=== PATIENT | female | born 1950 | race Caucasian/White ===

== ENCOUNTER 2019-09-19 07:02 | Outpatient (CLI) | payer MEDICARE, MEDICAID, SELFPAY ==
--- NOTE | 2019-09-19 07:15 | US_ITS ---
WS: [id number] RIGHT UPPER QUADRANT ULTRASOUND HISTORY: CIRRHOSIS COMPARISON: 03/07/2019 Liver: 12.1 cm in length. Liver is normal size. Mild nodularity along the surface of the liver. No intrahepatic mass or bile duct dilatation. Mild enlargement of the portal splenic confluence. Gallbladder: Normally distended gallbladder. Polyp seen on the prior examination measures 9 mm. Similar size as compared to prior examinations dating back to 2014. Gallbladder wall is mildly thickened at 3.7 mm. CBD: 6.6 mm Pancreas: Normal size and echogenicity. Right kidney: 10.0 cm in length. Normal echogenicity with no mass or hydronephrosis. Aorta and IVC: Unremarkable. No ascites. NOTE: Report was unsigned for reason: Ordering provider was edited. Original Signature date and time was: 09/19/19 0915 [facility] US/US abdomen limited [id number] IMPRESSION: 1. Findings consistent with cirrhosis and portosystemic hypertension, similar to the prior studies. 2. Long-term stability of a 9 mm gallbladder polyp. 3. Mild gallbladder wall thickening is probably on the basis of hepatocellular disease.
== END 2019-09-19 07:03 | disposition home or self-care (01) ==
LOC: RAD 07:08
PROVIDERS: PCP Family Medicine; Visit Provider Internal Medicine Gastroenterology
DX: K82.4 Cholesterolosis of gallbladder (principal); K74.60 Unspecified cirrhosis of liver
CPT/HCPCS: 76705

== ENCOUNTER 2020-05-11 07:40 | Outpatient (CLI) | payer MEDICARE, MEDICAID, SELFPAY ==
--- NOTE | 2020-05-11 08:49 | US_ITS ---
WS: [id number] RIGHT UPPER QUADRANT ULTRASOUND HISTORY: CIRRHOSIS/ HCC SCREENING COMPARISON: 09/19/2019 Liver: 13.5 cm in length. Small liver. Surface of the liver is irregular and nodular. No mass identif ied. No bile duct dilatation. Portal vein is dilated. The entire portal vein and splenic vein are dil ated. Gallbladder: Well distended gallbladder. Diffuse gallbladder wall thickening measuring up to 5 mm. Ag ain noted is the 8 x 6 mm polyp which is unchanged in size. CBD: 0.5 cm Pancreas: Small atrophied pancreas. Right kidney: 9.7 cm in length. Normal size and echogenicity. No hydronephrosis or mass. Aorta and IVC: Unremarkable abdominal aorta and IVC. No ascites. US/US abdomen limited [id number] IMPRESSION: 1. Cirrhosis with no evidence for hepatic neoplasm. 2. Dilated stable portal and splenic veins. Consistent with a history of cirrh osis and portal venous hypertension. 3. Stable gallbladder polyp.
== END 2020-05-11 07:41 | disposition home or self-care (01) ==
LOC: RAD 07:43
PROVIDERS: PCP Family Medicine; Visit Provider Internal Medicine Gastroenterology
DX: K74.60 Unspecified cirrhosis of liver (principal); K82.4 Cholesterolosis of gallbladder
CPT/HCPCS: 76705

== ENCOUNTER 2020-11-19 13:58 | Outpatient (CLI) | payer MEDICARE, MEDICAID, SELFPAY ==
--- NOTE | 2020-11-19 14:22 | XR_ITS ---
WS: [id number] PROCEDURE: XR chest 2V* [id number] CLINICAL INFORMATION: COUGH, UPPER BACK PAIN COMPARISON: FINDINGS: Heart: Cardiomegaly. Aortic calcification. Lungs: Advanced chronic emphysematous changes. No acute pulmonary infiltrates. Bones: Mild thoracic kyphosis. Mild thoracic curve. Osteopenia. XR/XR chest 2V* [id number] IMPRESSION: 1. Cardiomegaly. 2. Chronic emphysematous changes. No acute pulmonary infiltrates. 3. No acute chest findings.
== END 2020-11-19 13:59 | disposition home or self-care (01) ==
PROVIDERS: PCP Internal Medicine; Visit Provider Nurse Practitioner Family
DX: M54.9 Dorsalgia, unspecified (principal); R05 Cough; I51.7 Cardiomegaly
CPT/HCPCS: 71046

== ENCOUNTER 2021-02-04 12:29 | Outpatient (CLI) | payer MEDICARE, MEDICAID, SELFPAY ==
--- NOTE | 2021-02-04 12:38 | USCV_ITS ---
Livia Dudley Age: 70 Gender: F : 1950 Exam Date: 02/04/2021 13:23 Ordering Phys: Daya Anderson MD Technologist: Wanda Parry [place] [facility] [place]: CHF BP: 132 / 89 HR: 79 Rhythm: Sinus Technical Quality: Adequate MEASUREMENTS (Male / Female) Normal Values 2D ECHO LV Diastolic Diameter PLAX 4.9 cm 4.2 - 5.9 / 3.9 - 5.3 cm LV Systolic Diameter PLAX 2.8 cm IVS Diastolic Thickness 1.1 cm 0.6 - 1.0 / 0.6 - 0.9 cm IVS Systolic Thickness 1.4 cm LVPW Diastolic Thickness 1.1 cm 0.6 - 1.0 / 0.6 - 0.9 cm LVPW Systolic Thickness 1.6 cm RV Chamber Size 2.8 cm LVOT Diameter 2.0 cm LV Ejection Fraction 2D Teich 73.8 % LV Ejection Fraction MOD 2C 65.0 % LV Ejection Fraction 2C AL 64.6 % LA Diameter 2.7 cm LA Width 3.6 cm LA Height 4.6 cm RA Width 3.6 cm RA Height 4.4 cm Aorta at Sinotubular Diameter 2.3 cm M-MODE LV Diastolic Diameter MM 5.1 cm 4.2 - 5.9 / 3.9 - 5.3 cm LV Systolic Diameter MM 3.2 cm LV Ejection Fraction MM Teich 67.3 % IVS Diastolic Thickness MM 1.2 cm 0.6 - 1.0 / 0.6 - 0.9 cm IVS Systolic Thickness MM 1.5 cm LVPW Diastolic Thickness MM 1.1 cm 0.6 - 1.0 / 0.6 - 0.9 cm LVPW Systolic Thickness MM 1.5 cm Aortic Annulus Diameter 3.4 cm LA Ao Ratio MM 0.9 MV E Point Septal Separation 0.7 cm DOPPLER AV Peak Velocity 120.0 cm/s LVOT Peak Velocity 109.0 cm/s AV Area Cont Eq vti 2.7 cm squared AV Area Cont Eq pk 2.8 cm squared MV Area PHT 4.3 cm squared Mitral E to A Ratio 1.3 MV E' Velocity 43.5 cm/s Mitral E to MV E' Ratio 6.9 Mitral E to LV E' Lateral Ratio 6.2 Mitral E to LV E' Septal Ratio 7.8 TR Peak Velocity 365.3 cm/s TR Peak Gradient 53.4 mmHg TV Peak E Velocity 43.0 cm/s Right Atrial Pressure 3.0 mmHg Pulmonary Artery Systolic Pressu 56.4 mmHg PV Peak Velocity 97.0 cm/s RV Acceleration Time 0.1 s RV Ejection Time 0.3 s RV AcT/ET 0.4 FINDINGS Left Ventricle Normal left ventricular size. LV systolic function is normal with EF of 55-60%. No regional wall motion abnormalities. Normal diastolic filling pattern. Right Ventricle The right ventricle is normal in size and function. Right Atrium The right atrium is normal in size. Left Atrium The left atrium is normal in size. Mitral Valve Structurally normal mitral valve without significant stenosis or prolapse. There is trace mitral regurgitation. Aortic Valve Structurally normal aortic valve without significant sclerosis or stenosis. There is mild aortic regurgitation. Tricuspid Valve Structurally normal tricuspid valve without significant stenosis. Mild tricuspid regurgitation. Insufficient TR jet to calculate RVSP Pulmonic Valve Structurally normal pulmonic valve without significant stenosis. There is trace pulmonic regurgitation. Pericardium Normal pericardium without effusion. Aorta Normal ascending aorta dimension. CONCLUSIONS LV systolic function is normal with EF of 55-60% Diastolic function is normal Trace mitral regurgitation, trace pulmonic regurgitation Mild aortic regurgitation, mild tricupsid regurgitation Compared to prior echocardiogram from 08/05/2016, no signficant changes are noted Darin Bowers MD (Electronically Signed) Final Date: 04 February 2021 14:41 S
[2021-02-04 13:19] LABS: Blood Urea Nitrogen 11 mg/dL (8-23)
[2021-02-04] MEDS: iohexol 300 mg/mL 100 mL Btl IV (13:47)
== END 2021-02-04 12:30 | disposition home or self-care (01) ==
LOC: RAD 12:34
PROVIDERS: Visit Provider Internal Medicine
DX: J44.9 Chronic obstructive pulmonary disease, unspecified (principal); I50.9 Heart failure, unspecified; I08.3 Combined rheumatic disorders of mitral, aortic and tricuspid valves
CPT/HCPCS: 36415; 82565; 84520; 93306

== ENCOUNTER 2021-02-21 08:11 | Outpatient (CLI) | payer MEDICARE, MEDICAID, SELFPAY ==
--- NOTE | 2021-02-21 08:38 | CT_ITS ---
WS: [id number] CT CHEST TECHNIQUE: Contrast enhanced CT of the chest with coronal and sagittal reformatted images. CLINICAL INFORMATION: COPD COMPARISON: CTA chest 9 10,019 DLP: 430.[address] scans at [facility] use at least one of these dose optimization techniques: automat ed exposure control; mA and/or kV adjustment per patient size (includes targeted exams where dose is matched to clinical indication); or iterative reconstruction. FINDINGS: Mild chronic emphysematous changes. No acute pulmonary infiltrates. No consolidation or pleural fluid . Cardiomegaly. No focal pneumonia or pleural fluid. Subsegmental atelectasis left lower lobe. No oth er suspicious pulmonary parenchymal abnormalities. Enlarged heterogeneous thyroid with nodularity. Normal caliber thoracic aorta. Proximal main pulmonar y arteries appear normal. No mediastinal or hilar lymphadenopathy. No axillary lymphadenopathy. Small esophageal hiatal hernia. Cirrhotic liver. Splenomegaly partially visualized. Normal caliber up per abdominal aorta partially visualized. Diffuse fatty infiltration the liver. Enhancing lesion left hepatic lobe measuring 2.3 x 1.7 CM with hypoechoic halo suspicious for HCC. Edema in the ivon hepa tis partially visualized. Suspected partially visualized filling defect involving the main portal vein at the ivon hepatis ruiz picious for thrombus with narrowing of the right portal vein. This is only partially visualized. Deejay mmend further evaluation with contrast-enhanced CT abdomen pelvis with triphasic liver protocol. Susp ected thrombus measures 4.[address]/CT chest w con* [id number] IMPRESSION: 1. Mild chronic emphysematous changes. No acute pulmonary infiltrates. 2. Subsegmental atelectasis left lower lobe. No suspicious pulmonary parenchym al abnormalities. 3. Cardiomegaly. 4. Cirrhotic liver with new left hepatic lobe nodular lesion measuring 1.7x2.3 cm with hypoenhancing halo suspicious for HCC. Recommend further evaluation wi th CT abdomen pelvis with triphasic liver protocol. 5. Partially visualized splenomegaly. Portal venous hypertension. 6. Suspected partially visualized filling defect involving the main portal vei n at the ivon hepatis suspicious for thrombus with narrowing of the right port al vein. Recommend further evaluation with contrast-enhanced CT abdomen pelvis with triphasic liver protocol. Notified Daya Anderson MD at 02/21/2021 10:14 AM.
[2021-02-21] MEDS: iohexol 300 mg/mL 100 mL Btl IV (09:09)
== END 2021-02-21 08:12 | disposition home or self-care (01) ==
LOC: RAD 08:14
PROVIDERS: PCP Internal Medicine; Visit Provider Internal Medicine
DX: J44.9 Chronic obstructive pulmonary disease, unspecified (principal); J98.11 Atelectasis; I51.7 Cardiomegaly; K74.60 Unspecified cirrhosis of liver; K76.6 Portal hypertension
CPT/HCPCS: 71260

== ENCOUNTER 2021-06-14 07:48 | Outpatient (CLI) | payer MEDICARE, MEDICAID, SELFPAY ==
--- NOTE | 2021-06-14 17:35 | ONC CON_ITS ---
Dr. García New Patient Note Patient: Livia Dudley Unit #: [id number]: 1950 Dicatated By: Rafal García M.D.Date of Visit: Jun 14, 2021 Onc MED New Patient/Consult Referring Physician: Dr. ZHOU ANDERSON M.D. Chief Complaint: Neutropenia. History of Present Illness: This is a 71-year-old woman with pancytopenia and worsening neutropenia. She has a known history of hepatitis C, acquired through a blood transfusion. She had successful treatment for the hepatitis C about 5 years ago. However, in the meantime she had developed liver cirrhosis with associated hypersplenism. According to records which her daughter has compiled, she had pancytopenia dating back to at least 2006, though she did have normal blood counts on a CBC done here in May 2005. In any case, in February 2021 she was evaluated with a CT pulmonary angiogram for complaints of chest pain and shortness of breath. It showed mild emphysematous changes with no evidence of pulmonary embolism or other acute pathology in the chest. There was evidence for cirrhosis of the liver and splenomegaly. Also noted was an enhancing lesion in the left hepatic lobe measuring 2.3 x 1.7 cm with hypoechoic halo suspicious for hepatocellular carcinoma. A partially visualized filling defect involving the main portal vein at the ivon hepatis was suspicious for thrombus. She had further evaluation at [facility] and she ultimately was confirmed to have hepatocellular carcinoma, for which she underwent an embolization procedure in March 2021. I am asked to see her because of a low neutrophil count, which apparently has been declining over the past several months. The records which were provided include a CBC from 12/19/2020 which showed a hemoglobin of 11.1 g and hematocrit 33.9%. The red cell indices were normal. The white blood cell count was 2300 and the platelet count was 84,000. The differential included 58% neutrophils, 26% lymphocytes, 12% monocytes, and 4% eosinophils. A serum iron at that time was normal at 59 mcg/dL and her B12 level was normal at 677 pg/mL. Her most recent CBC from 06/07/2021 showed hemoglobin stable at 11.1 g with white blood cell count 1600 and platelet count 76,000. The differential showed 61% segs, 28% neutrophils, 8% monocytes, 2% eosinophils, and 1% basophils, with the absolute neutrophil count calculated to 1000. Her comprehensive metabolic profile at that time was unremarkable. Renal function was normal with BUN 14 and creatinine 0.60 mg/dL. The bilirubin and liver enzymes were normal and the albumin was normal at 4.4 g/dL. She has been feeling pretty good generally. She does have somewhat limited activity, but she is able to do some light work at home. ECOG score is 1. Her appetite is sometimes not good and her weight recently has been down a little. She does not have fever or night sweats. She recently got new dentures. She does not have sore throat or difficulty swallowing. She has a little bit of cough. She does not complain of shortness of breath or chest pain. She recently had some epigastric pain, thought to be due to acid reflux. She does not complain of nausea, she does have constipation. She has no complaints other than she sometimes has urgency with urination. She has no significant joint or bone pain. She sometimes has headache. She does not complain of dizziness, and she has no focal neurologic symptoms. She has been noted to bruise easily, but she has had no other bleeding manifestations. Past Medical History: Her medical history consists of atrial fibrillation, congestive heart failure, hepatitis C, hepatocellular carcinoma, hypersomnia, hypertension, hypothyroidism, and liver cirrhosis. Past Surgical History: Her surgical/procedural history includes D&C following a stillbirth and knee surgery for abscess. Medications: She had previously been taking metoprolol, but that was discontinued. She currently is not on any prescription medication. Allergies: No Known Allergies. Social History: Ms. Dudley is . She is a non-smoker. She does not drink alcohol. Family History: Father of heart disease at approximately age 80. Mother around age 70, most likely with some type of lung disease. She had a total of 9 siblings, 7 at home are still living. One brother of esophageal cancer and another recently with Covid 19 infection. Review Of Symptoms: Constitutional - She feels pretty good generally. She has somewhat limited activity, but she does some light housework. Her appetite is sometimes not as good, and her weight is down a little. She does not have fever or night sweats. ECOG score is 1, Eyes - No change in vision, ENMT - No hearing loss or tinnitus. No sinus congestion/drainage. She recently got new dentures. No sore throat or difficulty swallowing, Hematologic/Lymphatic - She has easy bruising, Respiratory - No shortness of breath. She has a little bit of cough. No pleuritic pain or hemoptysis, Cardiovascular - No angina pain. No palpitations, Gastrointestinal - No nausea or vomiting. She recently was having some pain in the epigastric area, thought to be most likely due to acid reflux. She has constipation. No blood in the stool or black stools, Genitourinary (F) - No dysuria or hematuria. No urinary frequency. She sometimes has urgency with urination. No incontinence, Musculoskeletal - No joint or bone pain, Integumentary - No skin rash or other skin changes, Neurologic - She sometimes has headache. No dizziness. No numbness or tingling. No other focal neurologic symptoms, Psychiatric - No anxiety or depression. No insomnia. Vital Signs: Performed on Jun 14, 2021 08:12: 0, 0, 30.00, 1.76 sq.m, 62 in, 97 %, 89 /min, 18 /min, 148/81 mm(hg) (HIGH), 97.2 F (LOW), and 164 lbs (HIGH). Physical Examination: Constitutional - She appears elderly but in good general health, Eyes - Sclerae nonicteric. Conjunctivae clear, ENMT - No lesions noted in the oral cavity, Neck - No mass or thyromegaly, Hematologic/Lymphatic - No cervical, clavicular, or axillary adenopathy, Respiratory - Lungs are clear with good air movement bilaterally, Cardiovascular - Heart rhythm is regular. There is no murmur, gallop, or rub noted, Abdomen - Soft and non-tender. Liver is not enlarged. The spleen is palpable on inspiration just below the costal margin. There is no abdominal mass or ascites noted and there is no inguinal adenopathy, Back/Spine - No spine or CVA tenderness noted, Extremities - Slight edema. Pedal pulses are palpable bilaterally, Integumentary - No rashes. No suspicious skin lesions noted, Neurologic - No focal neurologic deficits noted. Problem List: 1. Pancytopenia with worsening neutropenia. 2. 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 There is associated splenomegaly/hypersplenism which is the presumed cause for the pancytopenia. 3. Hepatocellular carcinoma for which she underwent an ablation procedure at [facility] in March 2021. 4. Hypertension, currently not requiring medication. 5. Atrial fibrillation, currently not requiring medication. 6. Congestive heart failure. 7. Hypothyroidism. 8. Hypersomnia. Problems Addressed with this Encounter and Plan: Patient with liver cirrhosis due to hepatitis C. She has associated splenomegaly with longstanding pancytopenia. Recently she has had a declining neutrophil count, but with her other blood counts remaining stable. The cause for this is uncertain. It is obviously not medication related, and the decline in her neutrophil count predated the ablation procedure to the liver. She has not had any acute illness to account for it, and it would also seem unlikely to be autoimmune. The main concern would be the possibility of a developing myelodysplastic syndrome. As her clinical status is otherwise appears stable and she does not appear to be symptomatic with it, I will initially just monitor this with close observation. I will contact Dr. Anderson to work out a follow-up laboratory schedule, but sometime within the next month I would like to repeat a CBC here so that I can review the blood smear. Otherwise, if her neutrophil count remains adequate at this level we can just continue to watch it. If there is further decline, she will need a bone marrow aspiration/biopsy. Signed By: Rafal García M.D. <<Signature on File>>
== END 2021-06-14 07:49 | disposition home or self-care (01) ==
LOC: ONCMED 07:51
PROVIDERS: PCP Internal Medicine; Visit Provider Internal Medicine Medical Oncology
DX: D61.818 Other pancytopenia (principal); K74.60 Unspecified cirrhosis of liver; B19.20 Unspecified viral hepatitis C without hepatic coma; I10 Essential (primary) hypertension; I48.91 Unspecified atrial fibrillation; I50.9 Heart failure, unspecified; E03.9 Hypothyroidism, unspecified; G47.10 Hypersomnia, unspecified; Z85.05 Personal history of malignant neoplasm of liver; Z79.899 Other long term (current) drug therapy
CPT/HCPCS: 99204

== ENCOUNTER 2021-07-02 12:22 | Outpatient (CLI) | payer MEDICARE, MEDICAID, SELFPAY ==
[2021-07-02 13:02] LABS: Hemoglobin 11.2 g/dL (11.5-15.3); Lymphocytes # 0.5 10^3/uL (0.8-4.8); Mean Corpuscular Hemoglobin 30.8 pg (28.0-34.0); Mean Corpuscular Volume 96.2 fl (81-99); Mean Platelet Volume 10.3 fL (7.4-10.4); Monocytes # 0.2 10^3/uL (0.2-0.9); Monocytes % 9.5 %; Neutrophils # 1.26 10^3/uL (1.8-7.7); Nucleated Red Blood Cells % 0 %; Platelet Count 75 10^3/cmm (130-400); Red Blood Count 3.64 10^6/uL (4.1-5.3); Red Cell Distribution Width 13.2 % (12.1-15.1)
[2021-07-02 13:11] LABS: LAB Peripheral Smear Sent for Review
== END 2021-07-02 12:23 | disposition home or self-care (01) ==
LOC: LAB 12:27
PROVIDERS: PCP Internal Medicine; Visit Provider Internal Medicine
DX: D70.9 Neutropenia, unspecified (principal); D61.818 Other pancytopenia
CPT/HCPCS: 36415; 85025

== ENCOUNTER 2023-03-20 11:12 | Outpatient (CLI) | payer MEDICARE, MEDICAID, SELFPAY ==
[2023-03-20 11:31] LABS: Basophils % 0.6 %; Eosinophils # 0.1 10^3/uL (0.0-0.8); Eosinophils % 5.1 %; Hematocrit 32.2 % (37.0-47.0); Hemoglobin 10.2 g/dL (11.5-15.3); Lymphocytes # 0.5 10^3/uL (0.8-4.8); Lymphocytes % 28.4 %; Mean Corpuscular HGB Conc 31.7 g/dL (30.0-36.0); Mean Corpuscular Hemoglobin 29.6 pg (28.0-34.0); Mean Corpuscular Volume 93.3 fl (81-99); Mean Platelet Volume 9.6 fL (7.4-10.4); Monocytes # 0.2 10^3/uL (0.2-0.9); Monocytes % 9.7 %; Neutrophils # 0.99 10^3/uL (1.8-7.7); Neutrophils % 56.2 %; Nucleated Red Blood Cells % 0 %; Platelet Count 64 10^3/cmm (130-400); Red Blood Count 3.45 10^6/uL (4.1-5.3); Red Cell Distribution Width 13.3 % (12.1-15.1); White Blood Count 1.8 10^3/uL (4.0-10.0)
[2023-03-20 11:55] LABS: Alanine Aminotransferase 18 U/L (0-33); Albumin Level 4.1 g/dL (3.5-5.2); Alkaline Phosphatase 73 U/L (35-105); Aspartate Amino Transferase 21 U/L (0-32); Blood Urea Nitrogen 10 mg/dL (8-23); Calcium 8.8 mg/dL (8.5-10.5); Carbon Dioxide 26 mmol/L (22-29); Chloride 105 mmol/L (98-107); Globulin 3.2 g/dL (1.3-4.6); Glucose 105 mg/dL (65-115); Osmolality Calculated 291 mOsm/kg (285-295); Sodium 141 mmol/L (136-145); Total Bilirubin 0.6 mg/dL (0.15-1.2); Total Protein 7.3 g/dL (6.6-8.7)
[2023-03-20 12:17] LABS: Anion Gap 14.5 (5-19); Potassium 4.5 mmol/L (3.5-5.1)
== END 2023-03-20 11:13 | disposition home or self-care (01) ==
PROVIDERS: PCP Internal Medicine; Visit Provider Nurse Practitioner Family
DX: R53.1 Weakness (principal)
CPT/HCPCS: 36415; 80053; 85025

== ENCOUNTER 2023-04-18 12:46 | Emergency (ER) | payer MEDICARE, MEDICAID, SELFPAY ==
[2023-04-18 12:54] VITALS: BP 156/95; PULSE 77; RESP 16; TEMP 36.5; O2SAT 98; BMI 28.3
[2023-04-18 13:07] LABS: Basophils % 0.6 %; Eosinophils # 0.1 10^3/uL (0.0-0.8); Eosinophils % 5.2 %; Lymphocytes # 0.5 10^3/uL (0.8-4.8); Lymphocytes % 27.9 %; Mean Corpuscular HGB Conc 31.8 g/dL (30-55); Mean Corpuscular Volume 94.3 fl (85-98); Mean Platelet Volume 9.8 fL (7.4-10.4); Monocytes # 0.2 10^3/uL (0.2-0.9); Monocytes % 9.3 %; Neutrophils % 56.4 %; Nucleated Red Blood Cells % 0 %; Platelet Count 58 10^3/cmm (157-399); Red Cell Distribution Width 13.4 % (12.1-15.1); White Blood Count 1.72 10^3/uL (3.29-11.43)
[2023-04-18 13:12] LABS: Neutrophils # 0.97 10^3/uL (1.8-7.7)
[2023-04-18 13:23] LABS: Alanine Aminotransferase 15 U/L (0-33); Albumin Level 4.4 g/dL (3.5-5.2); Alkaline Phosphatase 76 U/L (35-105); Anion Gap 14.1 (5-19); Aspartate Amino Transferase 21 U/L (0-32); Blood Urea Nitrogen 14 mg/dL (8-23); Calcium 8.7 mg/dL (8.5-10.5); Carbon Dioxide 25 mmol/L (22-29); Chloride 100 mmol/L (98-107); Globulin 3.2 g/dL (1.3-4.6); Glucose 106 mg/dL (65-115); Osmolality Calculated 281 mOsm/kg (285-295); Potassium 4.1 mmol/L (3.5-5.1); Sodium 135 mmol/L (136-145); Total Bilirubin 0.7 mg/dL (0.15-1.2); Total Protein 7.6 g/dL (6.6-8.7)
[2023-04-18 13:29] VITALS: BP 143/84; BP 153/87; BP 162/89; PULSE 74; PULSE 85
--- NOTE | 2023-04-18 13:38 | ECG_ITS ---
[facility] Test Date: 2023-04-18 Pat Name: Livia Dudley Department: Room: Gender: Female Clothes Designer: : 1950 Requested By: Maurice Rolle Order Number: [id number] MD: Darin Bowers M.D. Measurements Intervals [place] Rate: 72 P: 58 VA: 183 QRS: 7 QRSD: 148 T: 3 QT: 404 QTc: 442 Interpretive Statements SINUS RHYTHM INTRAVENTRICULAR CONDUCTION DELAY [130+ ms QRS DURATION] Compared to ECG 05/04/2019 00:08:13 Intraventricular conduction delay now present Right bundle-branch block no longer present T-wave abnormality no longer present Possible ischemia no longer present Electronically Signed On 04-18-2023 14:40:15 CDT by Darin Bowers M.D. [id number]
--- NOTE | 2023-04-18 13:49 | CTR_ITS ---
PROCEDURE INFORMATION: Exam: CT Head Without Contrast Exam date and time: 04/18/2023 2:15 PM Age: 73 years old Clinical indication: Dizziness; Additional info: Dizziness weakness TECHNIQUE: Imaging protocol: Computed tomography of the head without contrast. Radiation optimization: All CT scans at this facility use at least one of these dose optimization techniques: automated exposure control; mA and/or kV adjustment per patient size (includes targeted exams where dose is matched to clinical indication); or iterative reconstruction. REPORTING DATA: Count of CT and Cardiac NM exams in prior 12 months: This patient has received 0 known CTs and 0 known cardiac nuclear medicine studies in the 12 months prior to the current study. COMPARISON: No relevant prior studies available. RADIATION DOSE METRICS: Total DLP (mGy-cm): 975.26 FINDINGS: Brain: Diffuse cerebral atrophy, consistent with patient's age. No hemorrhage. Preserved marshall-white matter differentiation. Unremarkable white matter. No mass effect. Mild intracranial vascular calcifications. Cerebral ventricles: Ventricles are in proportion to the degree of atrophy. Paranasal sinuses: Visualized sinuses are unremarkable. No fluid levels. Mastoid air cells: Visualized mastoid air cells are well aerated. Auditory system: Likely ceruminous debris in the external auditory canals. Bones/joints: Unremarkable. No acute fracture. Soft tissues: Unremarkable. CT/CT head wo con* [id number] IMPRESSION: No acute intracranial findings.
--- NOTE | 2023-04-18 13:49 | XRR_ITS ---
PROCEDURE INFORMATION: Exam: XR Chest Exam date and time: 04/18/2023 2:11 PM Age: 73 years old Clinical indication: Other: Weakness TECHNIQUE: Imaging protocol: Radiologic exam of the chest. Views: 1 view. COMPARISON: 1. CT chest w con* [id number] 02/21/2021 8:59 AM 2. CR XR chest 2V* [id number] 11/19/2020 2:27 PM 3. CR XR chest 2V* [id number] 05/09/2019 1:51 PM FINDINGS: Lungs: Relative pulmonary hypoinflation compared to prior exams with associated bronchovascular crowding. No consolidation. Pleural spaces: Unremarkable. No pleural effusion. No pneumothorax. Heart/Mediastinum: Stable cardiomegaly. Bones/joints: Unremarkable. XR/XR chest 1V portable [id number] IMPRESSION: 1. Pulmonary hypoinflation without acute findings. 2. Cardiomegaly, stable.
--- NOTE | 2023-04-18 13:53 | ED_ITS ---
HPI - Dizziness General: Chief Complaint: Dizziness Stated Complaint: dizziness Time Seen by Provider: 04/18/23 13:30 Limitations: language barrier (Looked through a impregnator [employer] person through her phone) History of Present Illness: HPI Narrative: Presents to the ER with complaints of dizziness and generalized weakness today. Lasted proximately 30 minutes. Patient was leaving mosque felt dizzy and weak where she fell like she had to sit down and have help to make it to her car. Patient is not complaining of pain anywhere. Patient does have a history of liver cirrhosis secondary to a bad blood transfusion giving her hepatitis C. Patient does take propranolol as needed for atrial fibrillation Review of Systems General: Reports: 10 or more systems reviewed and unremarkable except in HPI and below PFSH ED PFSH: Medical History Atrial fibrillation Varicose veins of left lower extremity with other complications Family History Father CAD (coronary artery disease) Social History Smoking and tobacco status: never smoked Physical Exam Const: COMMON NORMALS: no acute distress, average body habitus, patient oriented x3, healthy appearing, alert and well nourished; limitations (Patient does not speak Upper Sorbian) HENMT: COMMON NORMALS: normocephalic, atraumatic, hearing grossly normal bilaterally, external ears normal, Normal external nose present and moist oral mucous membranes HEAD & SCALP: normocephalic and atraumatic NOSE: Normal external nose present EXTERNAL EAR: Yes external ears normal Eye: COMMON NORMALS: Equal, round and reactive pupils present, EOMs intact bilaterally, conjunctivae normal and no scleral icterus CONJUNCTIVA: Yes conjunctivae normal PUPIL: Yes Equal, round and reactive pupils present Neck/C-Spine: COMMON NORMALS: full ROM, no lymphadenopathy, supple, no meningeal signs, no JVD and Thyroid normal THYROID: Thyroid normal Lymph: LYMPHATIC: no lymphadenopathy noted and no lymphedema noted Chest: COMMONS NORMALS: normal inspection of the chest and normal palpation of entire chest wall Resp: COMMON NORMALS: normal respiratory effort, No retractions, No use of accessory muscles and clear to auscultation bilaterally AUSCULTATION: clear to auscultation bilaterally Cardio: COMMON NORMALS: no JVD, regular rate, regular rhythm, S1 normal heart sound present, S2 normal heart sound present, No gallops present (Cardio), No clicks present (Cardio), No murmurs present (Cardio) and No rub (Cardio) RATE: regular rate RHYTHM: regular rhythm HEART SOUNDS: S1 normal heart sound present and S2 normal heart sound present GI: COMMON NORMALS: Normal to inspection, nondistended, normoactive bowel sounds present, Soft to palpation, non-tender, No hepatosplenomegaly present and no masses PALPATION: Yes Soft to palpation and Yes No hepatosplenomegaly present : COMMON NORMALS: Yes no CVA tenderness BLADDER/KIDNEY EXAM: Yes no CVA tenderness Back/Pelvis: COMMON NORMALS: no CVA tenderness Neuro: COMMON NORMALS: patient oriented x3 SENSORIUM/ORIENTATION: Yes alert MENINGEAL SIGNS: Yes no meningeal signs CRANIAL NERVES: Yes CN normal except as noted SPEECH: speech normal MOTOR EXAM: 5/5 motor strength present throughout Course Vital Signs: Vital signs: Vital Signs Temperature 97.7 F 04/18/23 12:54 Pulse Rate 75 04/18/23 14:30 Respiratory Rate 16 04/18/23 16:20 Blood Pressure 162/89 04/18/23 14:30 Pulse Oximetry 98 04/18/23 16:20 Oxygen Delivery Me thod Room Air 04/18/23 12:54 MDM - Dizziness Medical Decision Making Presents to the ER with weakness and dizziness lasted about 30 minutes and then went away. Patient does have a history of hepatitis C and liver cirrhosis. Patient is chronically anemic with low white cells and low platelets. Lab work was obtained physical exam was performed all findings were stable for the patient and benign except positive for leukocyte Estrace and blood. This was explained to family and her daughter who is a impregnator electrolytic capacitors that she may have a urinary tract infection we will treat with antibiotics. And she will be followed up with by her PCP in approximately 1 week. Differential Diagnosis Unlikely adverse reaction to drug, benign paroxysmal positional vertigo, orthostatic hypotension, vertebral basilar insufficiency, cerebrovascular accident, acute vestibular neuronitis or transient cerebral ischemia Medical Records I reviewed the patient's medical records. Lab Data I reviewed the patient's lab results. 04/18/23 13:02 04/18/23 13:02 Radiology Impressions Chest X-Ray 04/18/23 13:49 IMPRESSION: 1. Pulmonary hypoinflation without acute findings. 2. Cardiomegaly, stable. Head CT 04/18/23 13:49 IMPRESSION: No acute intracranial findings. Laboratory Results WBC 1.72 10^3/uL (3.29-11.43) L 04/18/23 13:02 RBC 3.50 10^6/uL (3.85-5.65) L 04/18/23 13:02 Hgb 10.50 g/dL (11.27-16.99) L 04/18/23 13:02 Hct 33.0 % (36-47) L 04/18/23 13:02 MCV 94.3 fl (85-98) 04/18/23 13:02 MCH 30.0 pg (27-33) 04/18/23 13:02 MCHC 31.8 g/dL (30-55) 04/18/23 13:02 RDW 13.4 % (12.1-15.1) 04/18/23 13:02 Plt Count 58 10^3/cmm (157-399) L 04/18/23 13:02 MPV 9.8 fL (7.4-10.4) 04/18/23 13:02 Neut % (Auto) 56.4 % 04/18/23 13:02 Lymph % (Auto) 27.9 % 04/18/23 13:02 [place] % (Auto) 9.3 % 04/18/23 13:02 Eos % (Auto) 5.2 % 04/18/23 13:02 Baso % (Auto) 0.6 % 04/18/23 13:02 Neut # (Auto) 0.97 10^3/uL (1.8-7.7) L* 04/18/23 13:02 Lymph # (Auto) 0.5 10^3/uL (0.8-4.8) L 04/18/23 13:02 [place] # (Auto) 0.2 10^3/uL (0.2-0.9) 04/18/23 13:02 Eos # (Auto) 0.1 10^3/uL (0.0-0.8) 04/18/23 13:02 Baso # (Auto) 0.0 10^3/uL (0.0-0.1) 04/18/23 13:02 Nucleated RBC % (auto) 0 % 04/18/23 13:02 Nucleated RBCs # 0.0 /100WBC 04/18/23 13:02 Sodium 135 mmol/L (136-145) L 04/18/23 13:02 Potassium 4.1 mmol/L (3.5-5.1) 04/18/23 13:02 Chloride 100 mmol/L (98-107) 04/18/23 13:02 Carbon Dioxide 25 mmol/L (22-29) 04/18/23 13:02 Anion Gap 14.1 (5-19) 04/18/23 13:02 BUN 14 mg/dL (8-23) 04/18/23 13:02 Creatinine 0.5 mg/dL (0.5-0.9) 04/18/23 13:02 GFR Calculation Not Reportable 04/18/23 13:02 Glucose 106 mg/dL (65-115) 04/18/23 13:02 Calculated Osmolality 281 mOsm/kg (285-295) L 04/18/23 13:02 Calcium 8.7 mg/dL (8.5-10.5) 04/18/23 13:02 Magnesium 2.2 mg/dL (1.7-2.3) 04/18/23 13:02 Total Bilirubin 0.7 mg/dL (0.15-1.2) 04/18/23 13:02 AST 21 U/L (0-32) 04/18/23 13:02 ALT 15 U/L (0-33) 04/18/23 13:02 Alkaline Phosphatase 76 U/L (35-105) 04/18/23 13:02 C-Reactive Protein 3.0 mg/L (0.0-4.9) 04/18/23 13:02 Total Protein 7.6 g/dL (6.6-8.7) 04/18/23 13:02 Albumin 4.4 g/dL (3.5-5.2) 04/18/23 13:02 Globulin 3.2 g/dL (1.3-4.6) 04/18/23 13:02 TSH 2.54 uIU/mL (0.27-4.20) 04/18/23 13:02 Urine Color Colorless (Yellow) 04/18/23 14:34 Urine Appearance Clear (CLEAR) 04/18/23 14:34 Urine pH 7 (5-7) 04/18/23 14:34 Ur Specific [place] 1.005 (1.005-1.030) 04/18/23 14:34 Urine Protein Neg (Negative) 04/18/23 14:34 Urine Glucose (UA) Norm (Normal) 04/18/23 14:34 Urine Ketones Negative (Negative) 04/18/23 14:34 Urine Blood 2+ (Negative) H 04/18/23 14:34 Urine Nitrate Negative (Negative) 04/18/23 14:34 Urine Bilirubin Neg (Negative) 04/18/23 14:34 Urine Urobilinogen Norm mg/dL (Negative) 04/18/23 14:34 Ur Leukocyte Esterase Trace (Negative) H 04/18/23 14:34 Urine RBC 0-4 /hpf (0-2) H 04/18/23 14:34 Urine WBC Rare /hpf (0-5) 04/18/23 14:34 Ur Squamous Epith Cells Rare /hpf (0-5) 04/18/23 14:34 Amorphous Sediment Not Reportable 04/18/23 14:34 Urine Bacteria Trace /hpf (NONE) 04/18/23 14:34 EKG Data EKG 1: I personally reviewed and interpreted this EKG as follows: EKG interpretation date: 04/18/23 EKG interpretation time: 13:38 Prior EKG tracings: not available for review Interpretation: EKG showed ventricular rate 72 bpm, OK interval 183, QRS duration 148, QTc 428, sinus rhythm, intraventricular conduction delay, no ST-T wave changes Discharge Plan Discharge Patient Disposition: Home Clinical Impression: Vertigo, Acute UTI, Thrombocytopenia Anemia Qualifiers: Anemia type: unspecified type Qualified Code(s): D64.9 - Anemia, unspecified Condition: Stable Prescriptions: New Cipro 500 mg tablet 500 mg PO Q12H Qty: 14 0RF No Action propranolol 10 mg tablet 10 mg PO TID PRN (Reason: UNKNOWN) Discharge Orders: Discharge ED (Routine); Ordered 04/18/23 Ordered By: Ck Gong Referrals: Daya Anderson MD [Primary Care Provider] - 1 week Patient Instructions: Vertigo (ED), Urinary Tract Infection - Women Activity Restrictions/Additional Instructions: Take all your antibiotics as directed. Please follow-up with your family practice doctor for further evaluation and testing. Coding Level of Care Code ED Histology Aide for Ken José
[2023-04-18] MEDS: sodium chloride 0.9% 1,000 ML 999 ML IV (14:28)
[2023-04-18 14:30] VITALS: BP 162/89; PULSE 75; RESP 18; O2SAT 97
[2023-04-18 14:30] LABS: Magnesium 2.2 mg/dL (1.7-2.3); Thyroid Stimulating Hormone 2.54 uIU/mL (0.27-4.20)
[2023-04-18 15:15] LABS: Add Urine Microscopic? YES; Bilirubin Urine Neg (Negative); Glucose Urine UA Norm (Normal); Ketones Urine Negative (Negative); Leukocyte Esterase Urine Trace (Negative); Nitrate Urine Negative (Negative); Protein Urine Neg (Negative); RBC Urine 0-4 /hpf (0-2); Specific Gravity, Urine 1.005 (1.005-1.030); Urine Appearance Clear (CLEAR); Urine Color Colorless (Yellow); Urobilinogen Urine Norm (Negative); pH Urine 7 (5-7)
[2023-04-18 15:16] LABS: Add Urine Culture? No; Bacteria Urine TRACE /hpf; Blood Urine 2+ (Negative); Squamous Epithelial Cell Urine RARE /hpf (0-5); WBC Urine RARE /hpf (0-5)
[2023-04-18 16:20] VITALS: RESP 16; O2SAT 98
== END 2023-04-18 16:23 | disposition home or self-care (01) ==
PROVIDERS: Family Medicine; Emergency Provider Emergency Medicine; PCP Internal Medicine
DX: R42 Dizziness and giddiness (principal); N39.0 Urinary tract infection, site not specified; D69.6 Thrombocytopenia, unspecified; D64.9 Anemia, unspecified; Z86.19 Personal history of other infectious and parasitic diseases
CPT/HCPCS: 36415; 70450; 71045; 80053; 81001; 83735; 84443; 85025; 86140; 93005; 99285; J7030

== ENCOUNTER 2024-01-08 14:00 | Outpatient (CLI) | payer MEDICARE, MEDICAID, SELFPAY ==
--- NOTE | 2024-01-08 14:03 | USCV_ITS ---
Livia Dudley Age: 73 Gender: F : 1950 Exam Date: 01/08/2024 14:16 Ordering Phys: Daya Anderson MD Technologist: Nish Hodge [place] [facility] [place]: pain in left lower leg PROCEDURES: Venous duplex imaging was performed in only the left lower extremity. The following venous structures were evaluated: common femoral vein, profunda vein, proximal portion of the greater saphenous vein, superficial femoral vein, and the popliteal vein. In addition, the posterior tibial and peroneal trunk were evaluated. Serial compression, augmentation maneuvers, and spectral Doppler flow evaluation were performed. FINDINGS: Normal 2-D Doppler and augmentation and compressibility throughout the lower extremity venous structures. Additional imaging through the proximal calf veins also reveals no thrombus. Limited evaluation of the greater saphenous vein is patent with no thrombus. Patient has several varicosities in the patient directed area of pain med left calf. There appears to be partial thrombus in the most inferior portion. CONCLUSIONS Partial incomplete thrombus in the numerous lobulated calf varicosities area of concern medal left calf. Cannot exclude drainage to GSV. Some of the varicosites appear to penetrate deeper into calf. Consider anti-coagulant therapy Otherwise no DVT bilaterally Results to Dr Anderson at 1500 01/08/24 Guillermo Askew MD (Electronically Signed) Final Date: 08 Jan 2024 15:11 S
== END 2024-01-08 14:01 | disposition home or self-care (01) ==
LOC: RAD 14:00
PROVIDERS: PCP Internal Medicine; Visit Provider Internal Medicine
DX: M79.662 Pain in left lower leg (principal); I82.402 Acute embolism and thrombosis of unspecified deep veins of left lower extremity
CPT/HCPCS: 93971

== ENCOUNTER → 2024-11-14 12:20 | Outpatient (BNVA) | payer MEDICARE, MEDICAID, OTHER, SELFPAY | PROVIDERS: PCP Internal Medicine; Visit Provider Emergency Medicine | DX: M18.51 Other unilateral secondary osteoarthritis of first carpometacarpal joint, right hand (principal); M19.241 Secondary osteoarthritis, right hand | CPT/HCPCS: 73140 ==

== ENCOUNTER → 2025-01-31 08:57 | Outpatient (BNVA) | payer MEDICARE, OTHER, MEDICAID, SELFPAY | PROVIDERS: PCP Internal Medicine; Visit Provider Internal Medicine Cardiovascular Disease | DX: R07.9 Chest pain, unspecified (principal) | CPT/HCPCS: 93005 ==

== ENCOUNTER 2025-03-14 10:38 | Outpatient (CLI) | payer MEDICARE, MEDICAID, SELFPAY ==
--- NOTE | 2025-03-14 11:15 | USCV_ITS ---
Livia Dudley Age: 74 Gender: F : 1950 Exam Date: 03/14/2025 11:04 Ordering Phys: Adiel Dumont MD ([email or web address]) Technologist: SHWETA Exam Location: [facility] [place] Indication: SoB BP: 148 / 80 HR: 67 Rhythm: Sinus Technical Quality: Adequate MEASUREMENTS (Male / Female) Normal Values 2D ECHO LV Diastolic Diameter PLAX 4.8 cm 4.2 - 5.9 / 3.9 - 5.3 cm IVS Diastolic Thickness 0.9 cm 0.6 - 1.0 / 0.6 - 0.9 cm IVS Systolic Thickness 1.4 cm LVPW Diastolic Thickness 1.4 cm 0.6 - 1.0 / 0.6 - 0.9 cm LVPW Systolic Thickness 1.9 cm LVOT Diameter 2.0 cm LV Ejection Fraction 2D Teich 62.6 % LV Ejection Fraction MOD 4C 67.1 % LV Ejection Fraction MOD 2C 70.4 % LV Ejection Fraction 2C AL 71.3 % LA Diameter 3.5 cm RA Systolic Volume 4C AL 90.7 ml RA Systolic Volume 4C MOD 87.1 ml LA Sys Volume AL 74.9 cm cubed LA Sys Volume Index AL 38.8 cm cubed/m squared Aorta at Sinotubular Diameter 2.9 cm M-MODE LA Ao Ratio MM 1.3 AV Cusp Separation MM 1.5 cm DOPPLER AV Peak Velocity 134.0 cm/s LVOT Peak Velocity 101.0 cm/s AV Area Cont Eq vti 2.1 cm squared AV Area Cont Eq pk 2.5 cm squared MV Peak Velocity 91.0 cm/s MV Area PHT 3.9 cm squared Mitral E to A Ratio 1.0 TV Peak Velocity 206.0 cm/s TR Peak Velocity 234.0 cm/s TR Peak Gradient 21.9 mmHg TV Peak E Velocity 85.0 cm/s PV Peak Velocity 91.0 cm/s FINDINGS Left Ventricle Normal left ventricular size, systolic function and wall thickness, with no regional wall motion abnormalities. Left ventricular ejection fraction is estimated at 60 %. Grade I/IV diastolic dysfunction (abnormal relaxation filling pattern), normal to mildly elevated filling pressures. Right Ventricle The right ventricle is normal in size and function. Right Atrium Mildly increased right atrial size. Left Atrium Moderately increased left atrial size. Mitral Valve Mildly thickened mitral valve. No mitral valve stenosis. Mild mitral valve regurgitation. Aortic Valve Thickened aortic valve. No aortic valve stenosis. Mild aortic valve regurgitation. Tricuspid Valve Structurally normal tricuspid valve without significant stenosis or regurgitation. Pulmonary artery systolic pressure is normal. Pulmonic Valve Structurally normal pulmonic valve without significant stenosis. There is no pulmonic regurgitation. Pericardium Normal pericardium without effusion. Aorta Normal ascending aorta dimension. IVC The inferior vena cava appears normal. CONCLUSIONS Normal left ventricular size, systolic function and wall thickness, with no regional wall motion abnormalities. Left ventricular ejection fraction is estimated at 60 %. Grade I/IV diastolic dysfunction (abnormal relaxation filling pattern), normal to mildly elevated filling pressures. Moderately increased left atrial size. Mildly increased right atrial size. Thickened aortic valve. No aortic valve stenosis. Mild aortic valve regurgitation. There is no pericardial effusion. Right atrial pressure is around 5 mm of mercury. Adiel Dumont MD (Electronically Signed) Final Date: 18 March 2025 13:20 S
== END 2025-03-14 10:39 | disposition home or self-care (01) ==
LOC: RAD 10:42
PROVIDERS: PCP Internal Medicine; Visit Provider Internal Medicine Cardiovascular Disease
DX: R06.02 Shortness of breath (principal); R93.1 Abnormal findings on diagnostic imaging of heart and coronary circulation; I51.7 Cardiomegaly; I34.0 Nonrheumatic mitral (valve) insufficiency; I35.8 Other nonrheumatic aortic valve disorders; I35.1 Nonrheumatic aortic (valve) insufficiency
CPT/HCPCS: 93306

== ENCOUNTER → 2025-08-08 15:17 | Outpatient (BNVA) | payer MEDICARE, MEDICAID, SELFPAY | PROVIDERS: PCP Internal Medicine; Visit Provider Internal Medicine | DX: I48.91 Unspecified atrial fibrillation (principal); Z79.01 Long term (current) use of anticoagulants | CPT/HCPCS: 99213 ==